=== PATIENT | female | born 1975 | race Caucasian/White ===

== ENCOUNTER 2020-10-16 00:04 | Emergency (ER) | payer OTHER, SELFPAY ==
[2020-10-16 00:17] VITALS: BP 156/96; PULSE 91; RESP 20; TEMP 36.6; O2SAT 98; BMI 41.9
--- NOTE | 2020-10-16 00:38 | ED_ITS ---
HPI - Neck Pain/Injury General Chief Complaint: Neck Pain/Injury Stated Complaint: bad pain in neck, unable to move it Time Seen by Provider: 10/16/20 00:38 Mode of arrival: Ambulatory Limitations: no limitations History of Present Illness HPI Narrative: 45-year-old woman with a history of mild asthma and intermittent radicular low back pain presents with 4 days of increasing neck pain. She states that she felt a small twinge on Wednesday but does not describe any specific trauma. Over the weekend progressively got worse and she is to the point now where she is having any difficulty even moving her neck in any direction. She describes very specific point tenderness at occipital insertions bilaterally. There is not significant muscle spasm, fever, skin changes, tenderness along the cervical spine. She describes no recent cough, ear pain, sinus drainage, chest pain, abdominal pain. Related Data Home Medications Medication Instructions Recorded Confirmed fluticasone propion-salmeterol 1 puff BID #0 08/24/16 09/16/19 [Advair Diskus] Previous Rx's Medication Instructions Recorded albuterol sulfate 90 mcg/actuation 2 puff INHALATION Q4-6H PRN #8.5 09/16/19 aerosol inhaler gram benzonatate 100 mg capsule 100 mg PO BID-TID PRN #30 cap 09/16/19 hydrocodone-acetaminophen 1 tab PO Q6H PRN #14 tab 10/16/20 Allergies Allergy/AdvReac Type Severity Reaction Status Date / Time acetaminophen [From PERCOCET] Allergy Unknown Verified 09/16/19 12:40 oxycodone [From PERCOCET] Allergy Unknown Verified 09/16/19 12:40 Review of Systems Review of Systems ROS Unobtainable: All systems reviewed & are unremarkable except as noted in HPI and below Patient History Social History Smoking Status: Never smoker Smoking Status: Never smoker Substance Use Type: does not use Exam Narrative Exam Narrative: General: Healthy appearing, in significant distress and is unable to move her neck in any direction. Able to give a complete and coherent history. Well-nourished well-developed HEENT: Moist mucous membranes, normal sclera with reactive pupils, Neck: Point tenderness at by like lateral occipital insertions without any midline tenderness. She does not have significant paraspinous or trapezius muscle spasm. Respiratory: Lungs are clear to auscultation, no wheezing no rales no rhonchi. Full and symmetrical air movement Cardiac: Regular rate and rhythm no murmurs no bruits Skin: Warm and dry, no rashes Neurologic: Grossly neurologically intact with no obvious asymmetries or abnormalities, no upper extremity neurologic complaints or neuropathy Extremities: No trauma, well perfused Psych: Cooperative, appropriate insight and affect Initial Vital Signs Initial Vital Signs: Vital Signs Temperature 97.9 F 10/16/20 00:17 Pulse Rate 91 H 10/16/20 00:17 Respiratory Rate 20 10/16/20 00:17 Blood Pressure 156/96 H 10/16/20 00:17 Pulse Oximetry 98 10/16/20 00:17 Course Orders Ordered: Discontinued Medications Hydrocodone Bitart/Acetaminophen (Hydrocodone/Acet 5/325 Tablet) 1 tab PO NOW ONE Stop: 10/16/20 00:48 Last Admin: 10/16/20 01:08 Dose: 1 tab Documented by: HYACINTH Bupivacaine HCl/Epinephrine Bitart (Bupivacaine 0.5% W/ Epi (Pf) 30 Ml Vial) 30 ml INJ INTRA-OP ONE Stop: 10/16/20 00:50 Last Admin: 10/16/20 01:07 Dose: 30 ml Documented by: HYACINTH Ondansetron HCl (Ondansetron 4 Mg Odt) 4 mg SL NOW ONE Stop: 10/16/20 01:01 Last Admin: 10/16/20 01:07 Dose: 4 mg Documented by: HYACINTH Vital Signs Vital signs: Vital Signs - 8 hr 10/16/20 00:17 10/16/20 01:40 Temperature 97.9 F Pulse Rate 91 H 87 Respiratory Rate 20 18 Blood Pressure 156/96 H 138/83 Pulse Oximetry 98 97 [facility] - Neck Pain/Injury Medical Records Attestation: I reviewed the patient's medical records. [facility] Narrative Medical decision making narrative: 45-year-old woman with 5 days of increasing neck pain, occipital point insertion bilaterally. Significant enough that she is unable to even lay down at this point. She has tried ibuprofen, Excedrin, ice and heat and was recently prescribed methocarbamol, none of these have been effective for her. We shared decision-making we opted to try trigger point injections at the occipital insertions bilaterally. 5 cc of 1% bupivacaine with epinephrine was injected into the left and right side. She had a minor vasovagal reaction after the left side was completed. Given a dose of Zofran and some water and is feeling much better 135am re-evaluated. Clearly moving much easier but still having some tenderness. The soft collar that was applied hit exactly at the point of tenderness so was not helpful. We discussed appropriate use of pain medication and at this point she is safe to go home. There is no evidence of trauma, infection, epidural abscess, meningitis or other life-threatening findings. Discharge Plan Departure Patient Disposition: Home Clinical Impression: Trigger point with neck pain Instructions: DI for Neck Pain Activity Restrictions/Additional Instructions: Thank you for coming in today Your neck pain seems to be specifically stemming from the occipital insertions on the back of your head (Where the muscles mottle lay up operator to your skull). We tried injecting the specific trigger points. I used Marcaine with epinephrine. You seem to have a slight amount of improvement. The Marcaine should last for a couple of hours this evening hopefully, the pain will continue to improve. In terms of medical management of your pain, using 400 mg of ibuprofen (2 [id number] pills) and 1 Tylenol every 6 hours can be very helpful in controlling pain. For severe pain using 400 mg of ibuprofen and 1 Vicodin can be helpful. It is okay to use the methocarbamol as well. It is safe to keep your chiropractic appointment tomorrow and see if she has any additional suggestions for helping with your pain management. If he feel like things are getting worse, please feel free to return to the emergency department Prescriptions: New hydrocodone-acetaminophen 5-325 mg tablet 1 tab PO Q6H PRN (Reason: pain) Qty: 14 RF: 0 No Action albuterol sulfate 90 mcg/actuation HFA aerosol inhaler 2 puff INHALATION Q4-6H PRN (Reason: shortness of breath or wheezing) Qty: 8.5 RF: 0 benzonatate [Tessalon Perles] 100 mg capsule 100 mg PO BID-TID PRN (Reason: cough) Qty: 30 RF: 0 fluticasone propion-salmeterol [Advair Diskus] 100 MCG/50 MCG blister with device 1 puff BID Qty: 0 RF: 0 Referrals: Saskia Moody PA-C [Primary Care Provider] -
[2020-10-16] MEDS: BUPIVACAINE 0.5% W/ EPI (PF) 30 ML VIAL INJ (01:07)
[2020-10-16] MEDS: ONDANSETRON 4 MG ODT SL (01:07)
[2020-10-16] MEDS: HYDROCODONE/ACET 5/325 TABLET 1 TAB PO (01:08)
[2020-10-16 01:40] VITALS: BP 138/83; PULSE 87; RESP 18; O2SAT 97
== END 2020-10-16 01:45 | disposition home or self-care (01) ==
PROVIDERS: Emergency Provider Emergency Medicine; PCP Physician Assistant
DX: M54.2 Cervicalgia (principal)
CPT/HCPCS: 99281; 99283

== ENCOUNTER → 2021-10-20 11:26 | Outpatient (CLI) | payer OTHER, SELFPAY ==
--- NOTE | 2021-10-20 | DI.RAD.S_ITS ---
PROCEDURE: XR KNEE RT 3V INDICATIONS: right knee pain TECHNIQUE: 3 views of the knee were acquired. COMPARISON: None. FINDINGS: Bones: No fractures or dislocations. No suspicious bony lesions. Mild narrowing of the medial compartment joint space. [id number] tricompartment osteophytosis. Soft tissues: Small joint effusion. No suspicious soft tissue calcifications. IMPRESSION: No acute osseous abnormality. Dictated by: Ion Correa M.D. on 10/20/2021 at 13:55 Approved by: Ion Correa M.D. on 10/20/2021 at 13:57
== END ==
PROVIDERS: PCP Internal Medicine; Referring Provider Internal Medicine; Visit Provider Internal Medicine
DX: M25.561 Pain in right knee (principal)
CPT/HCPCS: 73562

== ENCOUNTER → 2021-11-03 12:48 | Outpatient (CLI) | payer OTHER, SELFPAY ==
--- NOTE | 2021-11-03 12:53 | DIET.CONS ---
Addendum entered by Lauren Melgar 11/03/21 14:35: Introduced pt to Fasting-Mimicking Diet as alternate to Intermittent Fasting. Pt has no hx disordered eating or on medications for heart/diabetes. Provided pt meal plan for FMD cycle to be conducted 5 consecutive days at most once monthly to help with weight loss. Original Note: Dietary Consultation Note Assessment: 46y F attending nutrition visit for help with weight loss. Pt went to RD previously for 2-3mo but did not see any progress, was told to eat more fiber. Pt wants to lose weight and have more of a structured plan to get there. Pt and PCP discussed bariatric surgery, pt open to gastric sleeve, but feels she needs nutrition changes anyway to be successful. Pt will check with insurance to see if they cover bariatric surgery. 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 Pt manages [employer] at [employer]. Pt has been over 250# for 4y, HS was 170-180# which felt good, she got down to 140# but felt too skinny would like to be <200#. 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, grilled ham and cheese with fries, sometimes sauteed veggies instead of fries often [employer] after work- fish sandwiches, fries, Coke goes home: relaxes and goes to bed, sometimes wakes to eat at night Non-work: drinks coffee in morning if leaving home, goes through drive through likes chicken breasts or wings- canned veggies, not many potatoes, uses GF rice and corn pasta uses canned hermann doesn't do bread or pasta, using gluten free noodles coffee and water does drink Coke, buys the small cans, doesn't drink much at work Snacks: cheerios, cheese- [place] string, sometimes chips Doesn't like: leiva, liver, more gluten free, brussels sprouts alone, Likes: chicken breasts and wings, pork chops, pork loin, likes beans with cilantro and onions, rice, bananas, pineapple, honeydew, watermelon, grapes no medications for heart, no disordered eating hx RD Impression: Pt has always been in bigger body. Current weight issues exacerbated by reliance on [employer] take out (barriers: lives alone, no meal planning/prep, waits too long to eat), working in restaurant environment where high kcal items are easy to grab and eat, and no formal exercise routine leaning to low metabolism and low lean body mass. Pt would benefit from bariatric surgery but would also benefit from developing healthier eating and fitness habits so she can maintain weight loss. 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 Interventions: 1. To address physical inactivity, introduced pt to [employer] website with free classes for people in bigger bodies. Goal: Do [employer] workout every day off to build lean body mass. 2. To address desired weight loss, worked c pt to come up with meal plan at 1800 kcals. B: coffee c oat or egg muffins (2) L: cottage cheese or yogurt c fruit and protein (hb egg or chicken breast) or hb egg and chicken on salad c low aaliyah dressing D: protein with 3/4 c rice or GF pasta and veggies, plus 1-2 100kcal snacks. 3. To address the fact that pt often gets drive-thru on way home from work, encouraged pt to meal prep 2 breakfast recipes and 2 protein entrees each week and put in meal prep containers. EER: 1800 kcals, 98g PRO Monitoring/Evaluations: f/u in 2w to assess progress and problem solve barriers. Electronically Signed by: Lauren Melgar 11/03/21 12:53 Clinical Dietitian [address] [id number]
[2021-11-03 13:13] VITALS: BMI 43.7
== END ==
PROVIDERS: PCP Internal Medicine; Referring Provider Internal Medicine; Visit Provider Internal Medicine
DX: E66.01 Morbid (severe) obesity due to excess calories (principal); Z68.41 Body mass index [BMI] 40.0-44.9, adult
CPT/HCPCS: 97802

== ENCOUNTER → 2021-11-17 12:23 | Outpatient (CLI) | payer OTHER, SELFPAY ==
--- NOTE | 2021-11-17 12:27 | DIET.PN1 ---
Dietary Progress Note 46y F attending RD f/u for help losing weight. Pt checked with her insurance, no coverage for bariatric surgery. Pt has not yet started exercising, has gym at work and resources to do home exercises, needs to get into the habit. Pt did first cycle FMD, went down 10# but then gained 5# after with net loss of 5# in 2w. Pt will repeat cycle once monthly until reaching weight goal. 264# (-5# in 2w) Pt has only been through drive through once in two weeks and got a black coffee. This is vast improvement because she would otherwise have gone 5-7x/week. Pt perry been doing well with batch cooking breakfasts and having lunches at work. Lunches: salads or chicken breast, cottage cheese and fruit Dinners: pasta with white sauce chicken or pork roast, white rice with soy sauce and pork loin and carrots Spent this visit problem solving her dinners to be healthier. Biggest factor is portion controlling rice and an alternate sauce to hermann for pasta. Pt will purchase pesto and red sauce to use with pasta and limit rice to 1c per meal. Pt is happy with progress so far. F/U in 4w to continue education and for support Electronically Signed by: Lauren Melgar 11/17/21 12:27 Clinical Dietitian [address] [id number]
== END ==
PROVIDERS: PCP Internal Medicine; Referring Provider Internal Medicine; Visit Provider Internal Medicine
DX: E66.9 Obesity, unspecified (principal)
CPT/HCPCS: 97803

== ENCOUNTER → 2021-12-22 14:58 | Outpatient (CLI) | payer OTHER, SELFPAY ==
--- NOTE | 2021-12-22 15:19 | DIET.CONS ---
Dietary Consultation Note 46y F attending 5w f/u for help with weight management. Pt saw PCP this morning and is down 10# in 6w. Pt noticing clothes fitting looser and she fits better in rocking chair at home when rocking grandbaby. 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 She slipped and ate out more fast food than usual. Otherwise pt drinking Premier Protein for breakfast or having sri lankan muffin, has salad for lunch at work, then portion controlled pasta or mashed potato dish at home. Using pesto rather than cream sauces. Pt tracking POs in [employer]. Pt got her PT bands out and has been using them. Discussed good work so far. Reinforced importance of meal planning and time management to avoid fast food. Reinforced therapy band work and exercise to support lean body mass and speed metabolism. Pt feels good with progress so far and is targeting getting under 250#. F/u scheduled in 6w unless pt slips and needs visit sooner. Electronically Signed by: Lauren Melgar 12/22/21 15:19 Clinical Dietitian [address] [id number]
== END ==
PROVIDERS: PCP Internal Medicine; Referring Provider Internal Medicine; Visit Provider Internal Medicine
DX: Z71.3 Dietary counseling and surveillance (principal)
CPT/HCPCS: 97803

== ENCOUNTER → 2022-04-03 12:57 | Outpatient (ROUT) | payer OTHER, SELFPAY ==
[2022-04-03 13:41] LABS: Influenza A - CEPHEID Flu A NEGATIVE (NEGATIVE); Influenza B - CEPHEID Flu B NEGATIVE (NEGATIVE)
[2022-04-03 13:58] LABS: COVID-19 CEPHEID PCR (VTM/NP) Negative (Negative)
== END ==
PROVIDERS: PCP Internal Medicine; Visit Provider Internal Medicine
DX: J02.9 Acute pharyngitis, unspecified (principal); R50.9 Fever, unspecified
CPT/HCPCS: 0240U